=== PATIENT | male | born 1940 | race Caucasian/White ===

== ENCOUNTER 2017-05-09 20:25 | Emergency (ER) | payer MEDICARE ==
[~2017-05-09] VITALS: Ht 167.6 cm; Wt 86.4 kg
[~2017-05-09 20:25] MED LIST: CARDIZEM 60MG T60 MG PO; CIPRO 500MG TA500 MG; CIPRO 500MG TA500 MG PO; COLACE 100100 MG/CAP PO; COUMADIN 22.5 MG/TAB PO; COUMADIN 5MG5 MG/TAB PO; GLUCOPHAGE850 MG/TAB PO; MULTAQ400 MG PO; NO HOME MEDICATIONS; NORCO 325 MG-51 TAB PO
[2017-05-09 21:00] LABS: BASO # 0.1 (0.0-0.2); BASO % 0.7 % (0.0-2.0); EOS # 0.4 (0.0-0.7); EOS % 5.5 % (0-4.0); GRAN # 4.4 (1.4-6.5); HEMATOCRIT 40.5 % (42.0-52.0); HEMOGLOBIN 13.8 g/dl (13.5-18.0); LYMPH % 26.7 % (20.0-51.0); MEAN CELL VOLUME 94 fl (80.0-100.0); MEAN CORPUSCULAR HEMOGLOBIN 32 pg (27.0-31.0); MEAN CORPUSCULAR HGB CONC 34 g/dl (33.0-37.0); MEAN PLATELET VOLUME 11.3 fl (7.4-10.4); MONO # 0.6 (0.1-0.6); MONO % 7.8 % (1.7-9.3); PLATELET COUNT 154 K/mm3 (130-400); RED BLOOD COUNT 4.32 M/mm3 (4.20-5.60); WHITE BLOOD COUNT 7.5 K/mm3 (4.8-10.8)
[2017-05-09 21:05] LABS: PROTHROMBIN TIME 11.6 SECONDS (9.7-12.8)
[2017-05-09 21:08] LABS: PARTIAL THROMBOPLASTIN TIME 28.7 SECONDS (26.0-37.0)
[2017-05-09 21:09] LABS: ADJUSTED CALCIUM 9.1 mg/dL (8.4-10.2); ALANINE AMINOTRANSFERASE 23 U/L (21-72); ALBUMIN 4.1 gm/dL (3.5-5.0); ALKALINE PHOSPHATASE 97 U/L (50-136); ANION GAP 10 mmol/L (7-16); BILIRUBIN,TOTAL 0.6 mg/dL (0.0-1.0); BLOOD UREA NITROGEN 16 mg/dL (9-20); CALCIUM 9.2 mg/dL (8.4-10.2); CARBON DIOXIDE 22 mmol/L (22-30); CHLORIDE 108 mmol/L (98-107); CREATININE, serum 0.99 mg/dL (0.66-1.25); GLUCOSE 156 mg/dL (74-106); POTASSIUM 3.7 mmol/L (3.4-5.0); SODIUM 140 mmol/L (137-145); TOTAL PROTEIN 7.2 gm/dL (6.4-8.2)
[2017-05-09 21:28] LABS: TROPONIN-I < 0.012 ng/mL (0.000-0.034)
[2017-05-10 00:36] VITALS: BP 154/75; PULSE 48; TEMP 96.9
== END 2017-05-10 00:35 | disposition home or self-care (01) ==
LOC: COL.ER 20:25
PROVIDERS: Emergency Medicine
DX: E11.9 Type 2 diabetes mellitus without complications (principal); I48.91 Unspecified atrial fibrillation; E78.5 Hyperlipidemia, unspecified; E66.9 Obesity, unspecified; Z68.30 Body mass index [BMI] 30.0-30.9, adult; Z90.49 Acquired absence of other specified parts of digestive tract; Z98.890 Other specified postprocedural states

== ENCOUNTER 2019-04-09 04:58 | Emergency (ER) | payer MEDICARE ==
[~2019-04-09] VITALS: Ht 167.6 cm; Wt 81.8 kg
[2019-04-09 05:26] VITALS: BP 134/76; TEMP 97.5
[2019-04-09 06:14] LABS: COLLECTION METHOD CLEAN CATCH
[2019-04-09 06:19] LABS: MUCOUS Present /lpf; PH 5 (5-8); SQUAMOUS EPITHELIAL None Seen /hpf; URINE APPEARANCE Clear; URINE BACTERIA None Seen /hpf; URINE BILIRUBIN Negative (NEGATIVE); URINE BLOOD 3+ (NEGATIVE); URINE COLOR Yellow; URINE GLUCOSE Negative (NEGATIVE); URINE KETONE Negative (NEGATIVE); URINE LEUKOCYTE ESTERASE Negative (NEGATIVE); URINE NITRATE Negative (NEGATIVE); URINE PROTEIN(semi-quant) Negative (NEGATIVE); URINE RBC >50 /hpf; URINE UROBILINOGEN Negative (NEGATIVE)
[2019-04-09 07:10] VITALS: PULSE 62
== END 2019-04-09 07:10 | disposition home or self-care (01) ==
LOC: COL.ER 04:58
PROVIDERS: Emergency Medicine
DX: R33.9 Retention of urine, unspecified (principal); I48.91 Unspecified atrial fibrillation; E11.9 Type 2 diabetes mellitus without complications; E78.5 Hyperlipidemia, unspecified; Z85.46 Personal history of malignant neoplasm of prostate

== ENCOUNTER 2019-05-06 06:36 | Day surgery (SDC) | payer MEDICARE ==
[~2019-05-06] VITALS: Ht 167.6 cm; Wt 85.7 kg
[2019-05-06] VITALS (7 sets, daily range): BP systolic 119–138; BP diastolic 66–74; PULSE 57–71; TEMP 97.2–97.6
[2019-05-06] MEDS ORDERED: PRINIVIL10 MG PO (07:00)
--- NOTE | 2019-05-06 10:00 | NUR ---
Pt arrived via cart with RESIDENTIAL ADVISOR. Received report from ARABELLA Mcneil. Pt is awake and oriented. Pt denies pain or nausea. Pt came with urinary catheter placed with light pink urine in dependent leg bag. VSS and WNL. Call light within reach. Pt eating ice chips
--- NOTE | 2019-05-06 10:15 | NUR ---
Pt sitting up comfortably in bed. VSS and WNL. Diet coke brought to pt per his request. call light within reach
--- NOTE | 2019-05-06 10:30 | NUR ---
Pt sitting comfortably in bed. VSS and WNL. Pt denies pain or nausea. call light within reach.
--- NOTE | 2019-05-06 10:45 | NUR ---
Pt eating Jello without c/o nausea. VSS. Pt states that he is ready to go home.
--- NOTE | 2019-05-06 11:00 | NUR ---
Reviewed discharge information with patient including educational packet, dicharge information, and how to change johnson bag, johnson care, and signs and symptoms that require a call to the dr or visit to ER. Pt agrees and expresses understanding. VSS and WNL. Pt has no further questions or concerns at this time.
== END 2019-05-06 11:20 | disposition home or self-care (01) ==
LOC: SDCO 06:36
DX: N32.0 Bladder-neck obstruction (principal); E11.9 Type 2 diabetes mellitus without complications; E78.5 Hyperlipidemia, unspecified; I10 Essential (primary) hypertension; Z85.46 Personal history of malignant neoplasm of prostate; Z90.49 Acquired absence of other specified parts of digestive tract; Z90.79 Acquired absence of other genital organ(s); Z82.49 Family history of ischemic heart disease and other diseases of the circulatory system; Z83.3 Family history of diabetes mellitus
CPT/HCPCS: J0690; J1100; J2405; J2704; J3010; J3301; J7030

== ENCOUNTER 2020-08-13 12:05 | Day surgery (SDC) | payer MEDICARE ==
[~2020-08-13] VITALS: Ht 167.6 cm; Wt 80.8 kg
[~2020-08-13 12:05] MED LIST changes: +PRINIVIL10 MG PO
[2020-08-13 12:37] VITALS: BP 136/74; PULSE 50; TEMP 98.2
[2020-08-13 16:00] VITALS: BP 141/71; PULSE 62; TEMP 96.8
--- NOTE | 2020-08-13 16:00 | NUR ---
Patient arrives to [facility] via cart, accompanied by GUILLOTINE OPERATOR Isabel. He is sitting up in bed, alert and oriented. He denies pain or nausea. Monitoring is applied -VSS and WNL on room air. He has a leg bag secured with a stat lock and to dependent drainage. It has a small amount of clear, yellow urine in it. He requests and receives water, jello, crackers, and applesauce to eat. His is updated on his status by phone. Will continue to monitor.
[2020-08-13 16:15] VITALS: BP 139/58; PULSE 62
--- NOTE | 2020-08-13 16:15 | NUR ---
VSS on room air. Tolerating PO well - he has ate/drank all of the provided items. He denies nausea or pain. PIV to TKO.
[2020-08-13 16:30] VITALS: BP 140/71; PULSE 57
--- NOTE | 2020-08-13 17:03 | NUR ---
Patient has met discharge criteria. Discharge instructions are discussed with the patient, including johnson catheter care. He is given the handout with johnson catheter care instructions with his discharge packet, along with alcohol wipes, a graduated cylinder, and a dependent drainage bag for overnight use. He verbalizes understanding of catheter care and denies any questions. PIV is removed with catheter intact and hemostasis achieved. He changes to his clothing independently. He is escorted to the exit via wheelchair by staff. He is discharged to the care of his , Ninoska, who drives him home in a private vehicle at 1703.
== END 2020-08-13 17:03 | disposition home or self-care (01) ==
LOC: SDCO 12:05
DX: N32.0 Bladder-neck obstruction (principal); R39.12 Poor urinary stream; E11.9 Type 2 diabetes mellitus without complications; E78.5 Hyperlipidemia, unspecified; I10 Essential (primary) hypertension; I48.91 Unspecified atrial fibrillation; Z20.822 Contact with and (suspected) exposure to COVID-19; Z90.49 Acquired absence of other specified parts of digestive tract; Z90.79 Acquired absence of other genital organ(s); Z79.899 Other long term (current) drug therapy; Z85.46 Personal history of malignant neoplasm of prostate
CPT/HCPCS: C1769; J0690; J1100; J1885; J2405; J2704; J3010; J3301; J7030

== ENCOUNTER 2021-02-26 15:23 | Emergency (ER) | payer MEDICARE ==
[~2021-02-26] VITALS: Ht 167.6 cm; Wt 80.0 kg
[2021-02-26 15:55] VITALS: TEMP 98.8
[2021-02-26 16:35] LABS: COLLECTION METHOD IN
[2021-02-26 16:40] LABS: PH 5 (5-8); SQUAMOUS EPITHELIAL None Seen /hpf; URINE APPEARANCE Clear; URINE BACTERIA None Seen /hpf; URINE BILIRUBIN Negative (NEGATIVE); URINE BLOOD 1+ (NEGATIVE); URINE COLOR Yellow; URINE GLUCOSE Negative (NEGATIVE); URINE KETONE Negative (NEGATIVE); URINE LEUKOCYTE ESTERASE Negative (NEGATIVE); URINE NITRATE Negative (NEGATIVE); URINE PROTEIN(semi-quant) Negative (NEGATIVE); URINE UROBILINOGEN Negative (NEGATIVE)
[2021-02-26 17:24] VITALS: BP 121/91; PULSE 76
== END 2021-02-26 17:21 | disposition home or self-care (01) ==
LOC: COL.ER 15:23
PROVIDERS: Emergency Medicine
DX: R33.9 Retention of urine, unspecified (principal); E11.9 Type 2 diabetes mellitus without complications; I10 Essential (primary) hypertension; Z79.899 Other long term (current) drug therapy; Z87.442 Personal history of urinary calculi

== ENCOUNTER 2021-02-28 05:49 | Day surgery (SDC) | payer MEDICARE ==
[~2021-02-28] VITALS: Ht 167.6 cm; Wt 79.5 kg
[2021-02-28 06:31] VITALS: BP 125/58; PULSE 63; TEMP 98.1
[2021-02-28 08:20] VITALS: BP 118/66; PULSE 74; TEMP 98.1
[2021-02-28 08:35] VITALS: BP 125/72; PULSE 70
[2021-02-28 08:50] VITALS: BP 125/77; PULSE 72
--- NOTE | 2021-02-28 09:10 | NUR ---
0820: Patient arrived back into [facility] [facility] via Cart. at bedside. Patient awake and alert, vital signs stable, no complaint of pain, nausea or vomiting. Patient requesting blueberry muffin and coffee. 0835: Patient tolerating food and drink well with no nausea, no complaint of pain, vital signs stable 0845: Went through discharge instructions with patient, patient's urine draining with no obstruction, slightly pink tinged. Questions answered, follow up appointment made. 0850: Vital signs stable, patient got dressed and states he is ready to go. 0855: Escorted patient to patient entrance in company with his . Left patient in the care of his , Ortega.
== END 2021-02-28 08:55 | disposition home or self-care (01) ==
LOC: SDCO 05:49
DX: N32.0 Bladder-neck obstruction (principal); E11.9 Type 2 diabetes mellitus without complications; E78.5 Hyperlipidemia, unspecified; I10 Essential (primary) hypertension; Z85.46 Personal history of malignant neoplasm of prostate; Z20.822 Contact with and (suspected) exposure to COVID-19; Z90.49 Acquired absence of other specified parts of digestive tract
CPT/HCPCS: J0690; J2405; J2704; J3010; J3301; J7120

== ENCOUNTER 2021-06-19 13:23 | Day surgery (SDC) | payer MEDICARE ==
[~2021-06-19] VITALS: Ht 167.6 cm; Wt 80.2 kg
[2021-06-19 14:06] VITALS: BP 130/74; PULSE 60; TEMP 97.4
[2021-06-19] MEDS ORDERED: CIPRO 500MG TA500 MG PO (14:14)
[2021-06-19] MEDS ORDERED: CINNAMON500 MG (14:19)
[2021-06-19] MEDS ORDERED: PHARMASSURE ZIN50 MG PO (14:21)
[2021-06-19 15:30] VITALS: BP 100/61; PULSE 54; TEMP 96.7
--- NOTE | 2021-06-19 15:30 | NUR ---
PT RECEIVED TO BAY 4 FROM OR. REPORT RECEIVED FROM LEASE OPERATOR AND MULTIPLE LAUNCH ROCKET SYSTEM CREWMEMBER. VS OBTAINED. DISCUSSED PLAN OF CARE WITH PT. VERBALIZED UNDERSTANDING. WILL CONTINUE TO MONITOR PT.
[2021-06-19 15:45] VITALS: BP 119/72; PULSE 61
--- NOTE | 2021-06-19 15:45 | NUR ---
PT RESTING COMFORTABLY. DENIES ANY PAIN AT THIS TIME. PT TOLERATING APPLE JUICE WITHOUT DIFFICULTY. WILL CONTINUE TO MONITOR PT. DENIES ANY NEEDS AT THIS TIME.
[2021-06-19 16:00] VITALS: BP 100/62; PULSE 50
--- NOTE | 2021-06-19 16:00 | NUR ---
PT DENIES ANY PAIN AT THIS TIME. DENIES ANY NEEDS. WILL CONTINUE TO MONITOR PT.
[2021-06-19 16:15] VITALS: BP 138/57; PULSE 51
--- NOTE | 2021-06-19 16:15 | NUR ---
PT CONTINUES TO TOLERATE PO FLUIDS. CONTINUES TO DENY ANY NEEDS AT THIS TIME. PT STATES HE IS READY TO BE DISCHARGED.
--- NOTE | 2021-06-19 16:40 | NUR ---
DISCHARGE EDUCATION COMPLETED WITH PT AND HIS . VERBALIZED UNDERSTANDING OF HOME AND FOLLOW UP CARE. ALL QUESTIONS ANSWERED. DISCHARGE PAPERWORK GIVEN TO PT.
== END 2021-06-19 16:55 | disposition home or self-care (01) ==
LOC: SDCO 13:23
DX: N35.819 Other urethral stricture, male, unspecified site (principal); R39.12 Poor urinary stream; E11.9 Type 2 diabetes mellitus without complications; E78.5 Hyperlipidemia, unspecified; I10 Essential (primary) hypertension; I48.91 Unspecified atrial fibrillation; Z87.442 Personal history of urinary calculi; Z79.899 Other long term (current) drug therapy; Z85.46 Personal history of malignant neoplasm of prostate; Z90.79 Acquired absence of other genital organ(s); Z90.49 Acquired absence of other specified parts of digestive tract
CPT/HCPCS: J0690; J2704; J3010

== ENCOUNTER 2024-03-24 10:46 | Inpatient (IN) | payer MEDICARE ==
[~2024-03-24] VITALS: Ht 167.6 cm; Wt 79.9 kg
[2024-03-24] VITALS (13 sets, daily range): BP systolic 116–163; BP diastolic 53–76; PULSE 35–48; TEMP 97.5–97.8
[~2024-03-24 10:46] MED LIST changes: +CINNAMON500 MG; +PHARMASSURE ZIN50 MG PO; +ROXICODONE 55 MG/TAB PO
[2024-03-24 11:09] LABS: BASO % 0.5 % (0.0-2.0); EOS # 0.2 K/mm3 (0.0-0.7); EOS % 3.4 % (0.0-4.0); GRAN # 3.9 K/mm3 (1.4-6.5); GRAN % 58.5 % (42.2-75.2); HEMOGLOBIN 12.3 g/dl (13.5-18.0); LYMPH # 2.1 K/mm3 (1.2-3.4); LYMPH % 31.9 % (20.0-51.0); MEAN CELL VOLUME 96 fl (80.0-100.0); MEAN CORPUSCULAR HEMOGLOBIN 32 pg (27-31); MEAN CORPUSCULAR HGB CONC 34 g/dl (33.0-37.0); MEAN PLATELET VOLUME 11.6 fl (7.4-10.4); MONO # 0.4 K/mm3 (0.1-0.6); MONO % 5.5 % (1.7-9.3); PLATELET COUNT 155 K/mm3 (130-400); RED BLOOD COUNT 3.83 M/mm3 (4.20-5.60); REDCELL DISTRIBUTION WIDTH-CV 13.6 % (11.5-14.5)
[2024-03-24 11:10] LABS: HEMATOCRIT 36.6 % (42.0-52.0)
[2024-03-24] MEDS ORDERED: ZEBETA 5MG5 MG PO (11:13)
[2024-03-24] MEDS ORDERED: NITROSTAT0.4 MG/TAB SL (11:13)
[2024-03-24 11:14] LABS: PROTHROMBIN TIME 11.2 SECONDS (9.7-12.8)
[2024-03-24] MEDS ORDERED: GLUCOPHAGE500 MG/TAB PO (11:14)
[2024-03-24 11:16] LABS: PARTIAL THROMBOPLASTIN TIME 28.3 SECONDS (26.0-37.0)
[2024-03-24 11:23] LABS: ALBUMIN 3.6 g/dL (3.4-4.8); BILIRUBIN,TOTAL 0.4 mg/dL (0.2-1.2); CREATININE, serum 1.53 mg/dL (0.72-1.25); MAGNESIUM 1.7 mg/dL (1.6-2.6); POTASSIUM 4.1 mEq/L (3.5-4.5); TOTAL PROTEIN 7.2 g/dl (6.2-8.1)
[2024-03-24 11:30] LABS: TROPONIN-I 0.01 ng/mL (0.00-0.033)
[2024-03-24] MEDS ORDERED: 1/2 NS 1,000 ML IV SCH ×2 (12:00→14:45)
[2024-03-24] MEDS ORDERED: Docusate Sodium 100 MG CAP PO PRN (12:45)
[2024-03-24] MEDS ORDERED: Acetaminophen 325 MG TAB PO PRN (12:45)
[2024-03-24] MEDS ORDERED: Polyethylene Glycol 3350 17 GM PDS PO PRN (12:45)
[2024-03-24] MEDS ORDERED: Ondansetron 4 MG/2 ML VIAL IV PRN (12:45)
[2024-03-24] MEDS ORDERED: niCARdipine (Cath Lab) 100 MCG/ML 10 ML VIAL IA SCH (13:59)
[2024-03-24] MEDS ORDERED: Heparin 1,000 UNITS/ML 10 ML Multi-Dose VIAL IV SCH (14:02)
[2024-03-24] MEDS ORDERED: fentaNYL 50 MCG/ML 2 ML VIAL IV SCH (14:04)
[2024-03-24] MEDS ORDERED: Midazolam 2 MG/2 ML VIAL IV SCH (14:05)
--- NOTE | 2024-03-24 14:09 | NUR ---
SEE MERGE CHARTING ON PAPER CHART FOR COMPLETED INFORMATION. PATIENT BROUGHT TO DIE TRIMMER FOR LEFT HEART CATH PERFORMED BY DR PARSONS. UPON COMPLETION OF PROCEDURE, PATIENT TRANSFERRED TO ROOM 314. REPORT GIVEN TO ARABELLA LONG.
--- NOTE | 2024-03-24 14:50 | NUR ---
PATIENT ARRIVED TO MEDICAL FLOOR AT APPROX 1430. PATIENT IS ALERT AND ORIENTED, AND TALKING TO STAFF. PATIENT BEGINS MOVING RIGHT WRIST. AGRICULTURAL EDUCATION INSTRUCTOR RN EDUCATES PATIENT NOT TO MOVE THIS ARM FOR A WHILE D/T POST CATH PROCEDURE. PATIENT STATES UNDERSTANDING. POST OP VS INITATED. HEART RATE IS RANGING FROM 30S-40S, OTHER VSS. ADMISSION INTAKE AND ASSESSMENT COMPLETE. NO SKIN ISSUES NOTED. PATIENT COMPLAINS OF RIGHT RADIAL PAIN CAUSED FROM THE COMPRESSION BAND. THIS RN EDUCATED PATIENT THAT THIS IS NORMAL POST CATH PROCEDURE. CMS TO RIGHT EXTREMITY IS NORMAL. THIS RN BROUGHT PATIENT ICE WATER AND A SANDWICH. TELEMETRY ON, CALL LIGHT WITHIN REACH. AT BEDSIDE. DENIES NEEDS OR CONCERNS AT THIS TIME.
--- NOTE | 2024-03-24 15:18 | NUR ---
THIS RN WENT TO PATIENT ROOM TO CHECK VS. PATIENT STATES "I'M AM GETTING MAD, IF THIS THING DOESN'T COME OFF, IM GOING TO TAKE IT OFF." REFERRING TO RADIAL COMPRESSION BAND TO RIGHT WRIST. CMS CONT TO BE NORMAL TO RIGHT EXTREMITY. THIS RN TAKES 1ML OF AIR OUT OF BAND. RN EDUCATED PATIENT ON RISKS OF TAKING RADIAL BAND OFF. PATIENT STATES "I DON'T CARE, I'LL TALK TO THE CARD PUNCHER!" DR MUELLER NOTIFIED.
[2024-03-24] MEDS ORDERED: [UNRECOGNIZED DRUG - OTHER] PO (15:46)
--- NOTE | 2024-03-24 16:55 | NUR ---
MEWS SCORE IS 3. THIS RN NOTIFIED HOUSE SUP AND COMPRESSOR STATION ENGINEER. PATIENT HAD PULSE RATE OF 37.
[2024-03-24] MEDS ORDERED: Insulin Lispro (HumaLOG) SQ SCH (17:04)
[2024-03-24] MEDS ORDERED: Dextrose 50% Water 25 GM/50 ML SYRINGE IV PRN (18:00)
[2024-03-24] MEDS ORDERED: Glucagon 1 MG VIAL IM PRN (18:00)
[2024-03-24] MEDS ORDERED: Dextrose (Glucose) 15 GM (4 x 3.75 GM) Chewable TABLET PACK PO PRN (18:00)
--- NOTE | 2024-03-24 18:58 | NUR ---
PATIENT SITTING UP RESTING IN BED WITH TV OFF WITH NO FAMILY PRESENT WITH NO ACUTE DISTRESS NOTED. PATIENT ON ROOM AIR. 1/2 NS INFUSING INTO LEFT FOREARM WITH NO COMPLICATIONS NOTED. TELEMETRY INTACT. BEDSIDE SHIFT REPORT COMPLETED WITH KIRSTEN AT THIS TIME. TR BAND REMOVED AND BANDAID APPLIED. PATIENT TOLERATED WELL. PATIENT DENIES ANY NEEDS AT THIS TIME. BED IN LOW POSITION WITH WHEELS LOCKED WITH RAILS UP X2 AND CALL LIGHT WITHIN REACH.
--- NOTE | 2024-03-24 19:25 | NUR ---
Assumed care of patient at 1800 from Kesha Harper RN. Post op vitals completed- see flowsheet. A total of 6ml removed from rt radial band and band removed-bandaid placed. No bleeding or hematoma noted. HR in the 40 range. Pt asymptomatic. Denies pain or needs at this time. Bedside report given to ARABELLA Ernandez.
--- NOTE | 2024-03-24 20:40 | NUR ---
PATIENT SITTING UP RESTING IN BED WITH DAUGHTER AT BEDSIDE WITH TV ON WITH NO ACUTE DISTRESS NOTED. PATIENT ON ROOM AIR. INT TO LEFT FOREARM INTACT WITH NO COMPLICATIONS NOTED. TELEMETRY INTACT. ASSESSMENT COMPLETED AT THIS TIME. NO MEDICATIONS SCHEDULED AT THIS TIME SEE EMAR. PATIENT REQUESTED A WARM BLANKET AND WAS GIVEN. ALL NEEDS MET. BED IN LOW POSITION WITH WHEELS LOCKED WITH RAILS UP X2 AND CALL LIGHT WITHIN REACH.
[2024-03-25 05:03] VITALS: BP 122/70; PULSE 49; TEMP 97.9
[2024-03-25 06:57] LABS: BASO % 0.3 % (0.0-2.0); EOS # 0.2 K/mm3 (0.0-0.7); EOS % 3.7 % (0.0-4.0); GRAN # 3.9 K/mm3 (1.4-6.5); GRAN % 65.5 % (42.2-75.2); HEMATOCRIT 34.4 % (42.0-52.0); HEMOGLOBIN 11.5 g/dl (13.5-18.0); LYMPH # 1.4 K/mm3 (1.2-3.4); LYMPH % 24.4 % (20.0-51.0); MEAN CELL VOLUME 94 fl (80.0-100.0); MEAN CORPUSCULAR HEMOGLOBIN 32 pg (27-31); MEAN CORPUSCULAR HGB CONC 33 g/dl (33.0-37.0); MEAN PLATELET VOLUME 11.7 fl (7.4-10.4); MONO # 0.4 K/mm3 (0.1-0.6); MONO % 5.9 % (1.7-9.3); PLATELET COUNT 159 K/mm3 (130-400); RED BLOOD COUNT 3.65 M/mm3 (4.20-5.60); REDCELL DISTRIBUTION WIDTH-CV 13.5 % (11.5-14.5)
[2024-03-25 07:12] LABS: CALCIUM 8.4 mg/dL (8.4-10.2); CREATININE, serum 1.27 mg/dL (0.72-1.25); POTASSIUM 4.5 mEq/L (3.5-4.5)
[2024-03-25 07:39] VITALS: BP 126/63; PULSE 50; TEMP 98.6
[2024-03-25 07:54] VITALS: BP_SYST 126
[2024-03-25] MEDS ORDERED: Pantoprazole 40 MG in NS 10 ML IV SCH (09:00)
[2024-03-25] MEDS ORDERED: Lisinopril 10 MG TAB PO SCH (09:00)
--- NOTE | 2024-03-25 09:35 | NUR ---
PATIENT ALERT AND ORIENTED X4. SOME FORGETFULNESS. PATIENT ON ROOM AIR, DENEIS PAIN AT THIS TIME. HAS A RIGHT RADIAL BANDAID C/D/I. ON TELEMETRY MONITORING. PATIENT FAMILY AT BEDSIDE. PATIENT DENIES SOA, DIZZINESS OR OTHER CONCERNS AT THIS TIME. CALL LIGHT WITHIN REACH, BED AT LOWEST POSITION.
[2024-03-25 09:36] LABS: CHOLESTEROL RISK RATIO 4.6
--- NOTE | 2024-03-25 09:51 | NUR ---
Initial visit; Patient and Lens Matcher had a nice visit. 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 He is very nice and sincere and has a very kind and loving family. Lens Matcher offered God's blessings and a "get well" message.
--- NOTE | 2024-03-25 10:54 | NUR ---
SW met with patient and family to complete initial assessment for discharge planning. Patient verified that he lives in [place] with his Ortega ([phone]). He lists his son Carlos ([phone]) as contact as well. Patient sees Dr. Mehdi Bashir as his PCP and uses [facility] in [employer] without difficulty. Patient has a cane, rollator walker and shower chair at home but does not require them at this time. Patient denies having a DPOA but is agreeable to completing one at this time. He lists his Ortega as primary agent, his son Carlos and daughter Aileen King ([phone]) as alternate DPOA. RN and NITIN witnessed patient's signature on DPOA form, original and copies provided to patient and family, copy placed on chart. Patient plans to return home to previous level of functioning at discharge. Discharge plan: Home
[2024-03-25 11:02] VITALS: BP 128/66; PULSE 50; TEMP 97.5
[2024-03-25] MEDS ORDERED: ASPIRIN E.C. 8181 MG PO (12:50)
[2024-03-25 12:58] VITALS: BP_SYST 128
--- NOTE | 2024-03-25 13:31 | NUR ---
PATIENT SITTING IN BED EATING MEAL. IV IN LEFT FOREARM, CALL LIGHT WITHIN REACH, NO COMPLAINTS REPORTED TO STUDENT NURSE BY PATIENT AT THIS TIME.
--- NOTE | 2024-03-25 14:15 | NUR ---
PATIENT DISCHARGE INSTRUCTIONS GIVEN.VERBALIZED UNDERSTANDING AND DENIED ANY QUESTIONS.PATIENT FAMILY AT BEDSIDE. PATIENT IV REMOVED FROM LEFT FORARM. PATIENT TELEMETRY DISCONTINUED. PATIENT INSTRUCTED TO CALL WHEN READY TO GO. CALL LIGHT WITHIN REACH. BED AT LOWEST POSITION.
--- NOTE | 2024-03-25 14:25 | NUR ---
PATIENT ESCORTED OUT OF UNIT BY PCT.
== END 2024-03-25 14:35 | disposition home or self-care (01) | DRG 262 ==
LOC: COL.ER 10:46 → MEDICAL 12:36
PROVIDERS: Family Medicine; ADMIT Internal Medicine
PROC: 4A023N6 Measurement of Cardiac Sampling and Pressure, Right Heart, Percutaneous Approach (ICD-10-PCS; principal; 2024-03-24)
PROC: 0JH632Z Insertion of Monitoring Device into Chest Subcutaneous Tissue and Fascia, Percutaneous Approach (ICD-10-PCS; 2024-03-24)
PROC: B2111ZZ Fluoroscopy of Multiple Coronary Arteries using Low Osmolar Contrast (ICD-10-PCS; 2024-03-24)
DX: R07.9 Chest pain, unspecified (principal); R00.1 Bradycardia, unspecified; I10 Essential (primary) hypertension; E11.9 Type 2 diabetes mellitus without complications; Z79.84 Long term (current) use of oral hypoglycemic drugs; E66.9 Obesity, unspecified; Z68.28 Body mass index [BMI] 28.0-28.9, adult
CPT/HCPCS: C1764; C1769; J1644; J1650; J2250; J2404; J3010; J3475